=== PATIENT | female | born 1970 | race Caucasian/White ===

== ENCOUNTER 2018-02-02 11:59 | Inpatient (IN) | payer OTHER ==
[~2018-02-02] VITALS: Ht 162.6 cm; Wt 98.2 kg
[~2018-02-02 11:59] MED LIST: FLEXERIL10 MG PO; HYDROCHLOR PO; LATUDA40 MG PO; METFORMIN PO; NAPROSYN500 MG PO; PERCOCET 5/31 TABLET PO; ZOLOFT100 MG PO
[2018-02-02 13:13] LABS: BASOPHIL (%) 0.6 % (0-1); BASOPHIL COUNT 0.1 K/uL (0-0.1); EOSINOPHIL (%) 1.9 % (0-5); EOSINOPHIL COUNT 0.2 K/uL (0-0.3); HEMOGLOBIN 14.6 G/DL (11.9-15.5); IMMATURE GRANULOCYTE (%) 0.3 % (0.0-0.7); LYMPHOCYTE (%) 33.8 % (15-42); LYMPHOCYTE COUNT 3.5 K/uL (1.0-2.8); MCH 29.9 PG (29.0-34.0); MCHC 34.8 G/DL (30.0-36.0); MCV 86.1 FL (83-99); MONOCYTE (%) 4.3 % (3-12); MONOCYTE COUNT 0.4 K/uL (0-0.8); NEUTROPHIL (%) 59.1 % (45-76); NEUTROPHIL COUNT 6.1 K/uL (1.8-6.4); PLATELET COUNT 355 K/uL (156-360); RBC DIS.WIDTH-CV 12.9 % (11.8-14.6); RBC DIS.WIDTH-SD 39.9 % (39-53); RED BLOOD COUNT 4.88 M/uL (3.80-5.20); WHITE BLOOD COUNT 10.3 K/uL (4.1-10.2)
[2018-02-02 13:21] LABS: ALBUMIN 4.2 g/dL (3.2-4.8); CHLORIDE 103 mEq/L (99-109); POTASSIUM 4.6 mEq/L (3.7-5.4); SODIUM 136 mEq/L (136-147)
[2018-02-02 13:23] LABS: GLUCOSE 295 mg/dL (70-99)
[2018-02-02 13:24] LABS: TOTAL PROTEIN 7.3 g/dL (6.4-8.3)
[2018-02-02 13:25] LABS: TOTAL BILIRUBIN 0.3 mg/dL (0.0-1.0)
[2018-02-02 13:26] LABS: SERUM ETHYL ALCOHOL < 10 mg/dL
[2018-02-02 13:27] LABS: ALKALINE PHOSPHATASE 126 IU/L (3-129); CREATININE 0.9 mg/dL (0.6-1.3); GFR ESTIMATE (CALCULATED) > 59 mL/min/
[2018-02-02 13:28] LABS: UREA NITROGEN (BUN) 16 mg/dL (9-23)
[2018-02-02 13:29] LABS: AST (GOT) 19 IU/L (2-34)
[2018-02-02 13:30] LABS: ALT (GPT) 39 IU/L (3-49)
[2018-02-02] MEDS ORDERED: LAMICTAL200 MG PO (14:41)
[2018-02-02] MEDS ORDERED: CYMBALTA30 MG PO (14:41)
[2018-02-02] MEDS ORDERED: XANAX0.25 MG PO (14:42)
[2018-02-02 15:32] LABS: APPEARANCE CLEAR ((CLEAR)); BILIRUBIN NEGATIVE; BLOOD NEGATIVE; COLOR YELLOW ((YELLOW)); GLUCOSE (STRIP) >=500; KETONES 20; LEUKOCYTES NEGATIVE; NITRITE NEGATIVE; PROTEIN (STRIP) NEGATIVE; SPECIFIC GRAVITY 1.036 (1.000-1.030); UCUL ADDED? NO; UROBILINOGEN 0.2 MG/DL (0.2-1.0)
[2018-02-02 15:43] LABS: AMPHETAMINE NEGATIVE (500 ng/mL); BARBITURATES NEGATIVE (200 ng/mL); BENZODIAZEPINES NEGATIVE (150 ng/mL); BUPRENORPHINE NEGATIVE (10 ng/mL); COCAINE NEGATIVE (150 ng/mL); METHADONE NEGATIVE (200 ng/mL); METHAMPHETAMINE NEGATIVE (500 ng/mL); OPIATES (MORPHINE) NEGATIVE (100 ng/mL); OXYCODONE NEGATIVE (100 ng/mL); PHENCYCLIDINE NEGATIVE (25 ng/mL); PROPOXYPHENE NEGATIVE (300 ng/mL); THC CANNABINOIDS NEGATIVE (50 ng/mL); TRICYCLIC ANTIDEPRESSANTS NEGATIVE (300 ng/mL)
[2018-02-02 16:13] VITALS: BP 134/88
[2018-02-02 16:14] VITALS: BP 134/88
[2018-02-03 08:25] VITALS: BP 154/90
[2018-02-03 14:47] LABS: HEMOGLOBIN A1c (GLYCOHEMOGLOB) 11.5 % (Below 5.7)
[2018-02-03 15:32] VITALS: BP 141/95
[2018-02-04 08:21] VITALS: BP 125/83
[2018-02-04 15:43] VITALS: BP 127/83
[2018-02-05 08:01] VITALS: BP 133/95
== END 2018-02-05 11:11 | disposition home or self-care (01) | DRG 882 ==
LOC: EME 11:59 → 1WEST 13:42 → EDOF 13:42 → 1WEST 13:42 → EDOF 14:01 → ENRESERV 15:43 → 1WEST 16:06
PROVIDERS: Emergency Medicine
DX: F43.29 Adjustment disorder with other symptoms (principal); R45.851 Suicidal ideations; F31.81 Bipolar II disorder; Z91.5 Personal history of self-harm
CPT/HCPCS: 80053; 81003; 83036; 85025; 90839; 97150 GO; 97165 GO; 99281; 99283; G0480